=== PATIENT | female | born 1995 | race Caucasian/White ===

== ENCOUNTER 2016-07-28 17:20 | Emergency (ER) | payer OTHER ==
[~2016-07-28] VITALS: Ht 165.1 cm; Wt 57.3 kg
[~2016-07-28 17:20] MED LIST: ABL10 PO; AZITTAB PO; CITA40TA4 PO; LEVOTAB PO; WLLSR100 PO
[2016-07-28 17:22] VITALS: TEMP 36.6; Ht 165.1 cm; Wt 57.3 kg
--- NOTE | 2016-07-28 18:24 | EMERGENCY ROOM VISIT NOTE ---
ED Visit Note First contact with patient: 17:24 CHIEF COMPLAINT: test request HISTORY OF PRESENT ILLNESS: This 21-year-old female patient presents to the emergency department accompanied by her boyfriend requesting a test. The patient states that she and her boyfriend have been trying to get for a few months. She states that her period is approximately one week late. Her last menstrual period was 06/24/16. She denies any of the . Denies any vaginal discharge, vaginal bleeding, nausea or vomiting. REVIEW OF SYSTEMS: A review of systems was performed with positives and pertinent negatives listed in the history of present illness. All other systems were reviewed and are negative. ALLERGIES: No known drug allergies MEDICATIONS: No chronic medications PMH: No significant past medical history. SOCIAL HISTORY: The patient lives locally with family. PHYSICAL EXAM: VITALS: Vitals are noted on the nurse's note and reviewed by myself. Vital signs stable. GENERAL: This is a 21-year-old female, in no acute distress, nondiaphoretic, well-developed well-nourished. HEART: Regular rate and rhythm, no murmurs gallops or rubs. LUNGS: Clear to auscultation throughout all lung petersen. ABDOMEN: Soft, nontender to palpation. EMERGENCY DEPARTMENT COURSE: The patient was evaluated as above. Urine test was performed and was negative. The patient was informed of the findings. She was instructed to repeat test in 1-2 weeks if she still does not have her menstrual period. She verbalized understanding of my assessment and treatment plan was discharged home in good condition. DIAGNOSIS: test request Problem List Medical Problems: (1) Anxiety Status: Chronic (2) Bronchitis Status: Resolved (3) Depression Status: Chronic Current/Historical Medications No Active Prescriptions or Reported Meds Allergies Coded Allergies: No Known Allergies (Unverified , 07/28/16) Vital Signs Date Time Temp Pulse Resp B/P Pulse Ox O2 Delivery O2 Flow Rate FiO2 07/28/16 17:22 36.6 92 18 112/69 97 Room Air Laboratory Results Test 07/28/16 17:32 Departure Information Impression Primary Impression: Possible Dispostion Home / Self-Care Condition GOOD Prescriptions No Active Prescriptions or Reported Meds Referrals Chitra Eagle M.D. (PCP) Patient Instructions My [facility] Additional Instructions Repeat a test in 1-2 weeks if you still did not have her menstrual period. Follow-up with [facility] as needed.
[2016-07-28 18:34] VITALS: BP 105/62; PULSE 75; O2SAT 98
== END 2016-07-28 18:36 | disposition home or self-care (01) ==
LOC: C.EDB 17:22 → C.EDD 18:36
DX: Z32.02 Encounter for pregnancy test, result negative (principal); F41.9 Anxiety disorder, unspecified; F32.9 Major depressive disorder, single episode, unspecified

== ENCOUNTER 2020-01-05 14:48 | Inpatient (IN) ==
[2020-01-05] MEDS ORDERED: LACTATED RINGER'S 1,000 ML IV PRN (15:13)
[2020-01-05] MEDS ORDERED: OXYTOCIN 30 UNITS/500 ML BAG IV PRN ×2 (15:13→20:51)
--- NOTE | 2020-01-05 15:16 | Delivery Summary ---
Vaginal Delivery Summary Date of Service January 05, 2020 Vaginal Delivery Summary Patient presented in active labor this was her second baby COVID negative group B strep positive she presented at 7 cm and then rapidly progressed to fully dilated within a few minutes she did not have time to receive IV antibiotics and delivered a baby over an intact perineum after pushing only through 1 contraction live vigorous infant cord clamped and cut no nuchal cord no excessive force used cord gases sent cord blood use placenta removed with gentle traction IV Pitocin was then started as an IV was started sponge and instrument counts correct estimated blood loss 150 mL [facility] Vaginal Delivery Charge Vaginal Delivery Codes: 83693 global code for the antepartum, delivery, and post-
[2020-01-05] MEDS ORDERED: OXYTOCIN 30 UNITS/500ML NSS ONE (15:18)
[2020-01-05] MEDS ORDERED: IBUPROFEN 600 MG TAB PO ONE (15:28)
[2020-01-05 15:48] LABS: Hematocrit (blood only) 43.5 % (37-47); Hemoglobin 14.9 g/dL (12.0-16.0); Mean Corpuscular Hemoglobin 32.2 pg (25-34); Mean Platelet Volume 11.5 fL (7.4-10.4); Platelet Count 245 K/uL (130-400); RDW Standard Deviation 44.7 fL (36.4-46.3); Red Blood Count 4.63 M/uL (4.2-5.4); White Blood Count 17.12 K/uL (4.8-10.8)
[2020-01-05 16:00] LABS: Mean Corpuscular Hgb Conc 34.3 g/dL (32-36)
[2020-01-05] MEDS ORDERED: ACETAMINOPHEN 325 MG TAB ONE (16:10)
[2020-01-05 16:22] LABS: Base Excess Cord Venous Blood -1.9 mEq/L (-7.7-1.9); Cord Venous Blood HCO3 21 mmol/L (18.4-26.8); Cord Venous Blood PCO2 30 mmHg (30.4-57.2); Cord Venous Blood PO2 22 mmHg (14.1-43.3); Cord Venous Blood pH 7.46 (7.20-7.44)
[2020-01-05 16:32] LABS: CO2 Cord Arterial Blood 38 mmHg (39.1-73.5); HCO3 Cord Arterial Blood 22 mmol/L (19.7-28.5); O2 Saturation Cord Venous Bld < 60.0 % (<68); PO2 Cord Arterial Blood 19 mmHg (4.1-31.7); pH Cord Arterial Blood 7.39 (7.1-7.38)
[2020-01-05 16:33] LABS: Oxygen Sat Cord Arterial Blood < 60.0 % (<60)
[2020-01-05] MEDS ORDERED: OXYCODONE/ACETAMINOPHEN 5mg/325mg TAB PO PRN (20:51)
[2020-01-05] MEDS ORDERED: bisacodyL 10 MG SUPP PR PRN (20:51)
[2020-01-05] MEDS ORDERED: SUPERCREAM 0.870% 15 GM JAR EXT PRN (20:51)
[2020-01-05] MEDS ORDERED: BENZOCAINE 20% AER SPR 82.5 GM CAN EXT PRN (20:51)
[2020-01-05] MEDS ORDERED: DIPHTHERIA/TETANUS/PERTUSSIS 0.5 ML SYR/VIAL IM ONE (20:51)
[2020-01-05] MEDS ORDERED: HYDROCORTISONE ACETATE 25 MG SUPP PR PRN (20:51)
[2020-01-05] MEDS ORDERED: ACETAMINOPHEN 325 MG TAB PO PRN (20:51)
[2020-01-05] MEDS: DOCUSATE SODIUM 100 MG CAP PO SCH (21:14)
[2020-01-05] MEDS: IBUPROFEN 600 MG TAB PO PRN (21:14)
[2020-01-06] MEDS: IBUPROFEN 600 MG TAB PO PRN ×2 (03:47→08:18)
[2020-01-06 05:53] LABS: Hematocrit (blood only) 36.7 % (37-47); Hemoglobin 12.7 g/dL (12.0-16.0); Mean Corpuscular Hemoglobin 32.4 pg (25-34); Mean Corpuscular Hgb Conc 34.6 g/dL (32-36); Mean Corpuscular Volume 93.6 fL (80-100); Mean Platelet Volume 11.3 fL (7.4-10.4); Platelet Count 213 K/uL (130-400); RDW Coefficient of Variation 13.1 % (11.5-14.5); RDW Standard Deviation 44.2 fL (36.4-46.3); Red Blood Count 3.92 M/uL (4.2-5.4); White Blood Count 17.37 K/uL (4.8-10.8)
--- NOTE | 2020-01-06 07:10 | Obstetrical Progress Note ---
Date of Service <Carlo Dyson MD - Last Filed: 01/06/20 08:08> January 06, 2020 Assessment & Plan <Carlo Dyson MD - Last Filed: 01/06/20 08:08> (1) Spontaneous vaginal delivery: - PNL: Rh pos, RI, GBS pos, COVID neg - Feels well today. Eating well, voiding well, ambulating well. - Pain well controlled with ibuprofen 600mg Q4H PRN - Routine care - OOB, ambulation, diet progression as tolerated - After discharge will have 6 week follow-up with Dr. Fuentes Subjective <Carlo Dyson MD - Last Filed: 01/06/20 08:08> Ambulation: ambulating normally Voiding: no voiding problems Passing Gas:: Yes Diet Tolerance:: regular diet Lochia:: Small Constitutional: no fever and no chills Respiratory: no cough and no dyspnea Cardiovascular: no chest pain, no palpitations and no edema Gastrointestinal: no nausea and no vomiting Genitourinary (female): no dysuria Physical Exam <Carlo Dyson MD - Last Filed: 01/06/20 08:08> Constitutional no acute distress Respiratory normal respiratory effort, lungs clear to auscultation Cardiovascular RRR, no murmur, no edema Gastrointestinal (Abdomen) Inspection/Auscultation: normal bowel sounds Percussion/Palpation: abdomen soft Musculoskeletal no calf tenderness Genitourinary uterine fundus firm, palpable 3cm below umbilicus Results & Data ([facility]) <Carlo Dyson MD - Last Filed: 01/06/20 08:08> Vital Signs (Past 12 Hours) Vital Signs Temp Pulse Resp BP Pulse Ox 01/06/20 03:50 36.6 C 66 18 117/80 97 01/05/20 23:45 36.4 C L 60 18 116/77 97 01/05/20 19:40 36.8 C 93 H 18 122/76 97 <Gui Fuentes MD, FACOG - Last Filed: 01/06/20 08:52> Co-Signing Physician Notes Resident Physician Supervision Note: I was present with [Karis] during the history and exam. I discussed the case with the resident and agree with the findings and plan as documented in the note. Any exceptions or clarifications are listed here: [None] Documented By: Gui Fuentes MD, FACOG Resident Activity Tracking <Carlo Dyson MD - Last Filed: 01/06/20 08:08> Resident Involvement: Resident Care Provided Care Provided: OB Delivery
--- NOTE | 2020-01-06 07:30 | Medical Student Progress Note ---
Date of Service January 06, 2020 Assessment & Plan (1) Spontaneous vaginal delivery: - Feels well today. Eating well, voiding well, ambulating well. - Pain well controlled with ibuprofen 600mg Q4H PRN - Routine care -- OOB, ambulation, diet progression as tolerated - After discharge will have 6 week follow-up with Dr. Fuentes Admission and Anticipated Discharge Date Admission Date: January 05, 2020 Subjective Subjective: Ms. Eastman is a 24 y/o female who is now PPD #1 following (spontaneous vaginal delivery +/- IOP) at 39 weeks. Reports feeling well overall this morning. No abdominal cramping & 1/10 pain with motrin management. Voiding gas, but no BM yet. No burning with urination. Patient ate last night shortly after delivery . She reports no nausea or vomiting. Tolerating meals overnight and able to ambulate well. Reports minimal discharge this morning. She has been bottle feeding and this is going well. She and her baby slept well through the night with no issues to report. Review of Systems Denies fever, chills, sweats Denies shortness of breath, difficulty breathing, chest pain, palpitations, chest pressure. Denies breast pain. Denies dysuria. Denies headache or changes in vision. Pt refused physical exam as the resident had just performed one. Physical Exam Constitutional: no acute distress and not ill appearing Results & Data ([facility]) Vital Signs (Past 12 Hours) Vital Signs Temp Pulse Resp BP Pulse Ox 01/06/20 03:50 36.6 C 66 18 117/80 97 01/05/20 23:45 36.4 C L 60 18 116/77 97 01/05/20 19:40 36.8 C 93 H 18 122/76 97 ROS Constitutional Reports as per HPI and Reports fatigue; Denies fever(s), Denies chills, Denies poor appetite and Denies headache(s) Eyes Eyes: Reports as per HPI; Denies change in vision Ear, Nose, Mouth, Throat ENT, Mouth: Reports as per HPI; Denies nasal congestion, Denies post nasal drip and Denies sore throat Cardiovascular Cardio: Reports as per HPI; Denies chest pain Respiratory Resp: Denies chest congestion, Denies cough, Denies post nasal drip and Denies dyspnea Gastrointestinal GI: Reports as per HPI, Denies abdominal pain, Denies nausea, Denies poor appetite and Denies vomiting Genitourinary Reports system reviewed and no additional complaints, except as documented, Denies dysuria and Reports vaginal discharge (minimal) Musculoskeletal Musk: Reports as per HPI and Reports system reviewed and no additional complaints, except as documented Skin/Breast Reports system reviewed and no additional complaints, except as documented Neurologic Reports system reviewed and no additional complaints, except as documented and Denies headache(s) Psychiatric Reports system reviewed and no additional complaints, except as documented Endocrine Reports fatigue Hematologic / Lymphatic Reports system reviewed and no additional complaints, except as documented
[2020-01-06] MEDS: PRENATAL VITAMIN 1 TAB PO SCH (08:18)
[2020-01-06] MEDS: DOCUSATE SODIUM 100 MG CAP PO SCH ×2 (08:18→20:39)
--- NOTE | 2020-01-06 08:21 | Medical Student Progress Note ---
Date of Service January 06, 2020 Assessment & Plan Admission and Anticipated Discharge Date Admission Date: January 05, 2020 Results & Data ([facility]) Vital Signs (Past 12 Hours) Vital Signs Temp Pulse Resp BP Pulse Ox 01/06/20 07:20 36.7 C 76 16 107/72 01/06/20 03:50 36.6 C 66 18 117/80 97 01/05/20 23:45 36.4 C L 60 18 116/77 97
[2020-01-06] MEDS ORDERED: NON-FORMULARY MEDICATION (Prenat.Vits,Cal,Min-Iron-Folic 1 TAB) PO SCH (09:00)
[2020-01-06] MEDS ORDERED: bisacodyL 5 MG TABEC PO SCH (20:00)
--- NOTE | 2020-01-07 07:01 | Medical Student Progress Note ---
Date of Service January 07, 2020 Assessment & Plan (1) Spontaneous vaginal delivery: - Feels well today. Eating well, voiding well, ambulating well. - Pain well controlled with ibuprofen 600mg Q4H PRN - Routine care -- OOB, ambulation, diet progression as tolerated - After discharge will have 6 week follow-up with Dr. Fuentes Admission and Anticipated Discharge Date Admission Date: January 05, 2020 Petrona Ambrocio is a 24 y/o female who is now PPD 2 following at 39 weeks. She reports feeling well this morning and does not voice any concerns. She is not having any pain (0/10) and is not taking any analgesic medication. She is ambulating well. She is able to pass gas and has had a BM. She is eating regular meals provided to her by the hospital without any nausea or vomiting. She is having minor bloody discharge. She is bottle feeding regularly. Review of Systems: Denies fever, chills, sweats Denies shortness of breath, difficulty breathing, chest pain, palpitations, chest pressure. Denies breast pain. Denies dysuria. Denies headache. Physical Exam Respiratory: normal respiratory effort, lungs clear to auscultation Cardiovascular: RRR, no murmur, no edema Gastrointestinal (Abdomen): normal bowel sounds, soft, nontender, no hepatosplenomegaly Inspection/Auscultation: abdomen normal to inspection Skin: no rashes, warm and dry Psychiatric: A+Ox3, euthymic affect Results & Data ([facility]) Vital Signs (Past 12 Hours) Vital Signs Temp Pulse Resp BP Pulse Ox 01/07/20 01:14 36.7 C 81 18 109/72 97 01/06/20 19:30 36.6 C 89 18 121/78 95
[2020-01-07 07:10] LABS: Hematocrit (blood only) 39.3 % (37-47); Hemoglobin 14.2 g/dL (12.0-16.0)
--- NOTE | 2020-01-07 07:38 | Obstetrical Progress Note ---
Date of Service <Carlo Dyson MD - Last Filed: 01/07/20 07:38> January 07, 2020 Assessment & Plan <Carlo Dyson MD - Last Filed: 01/07/20 07:38> (1) Spontaneous vaginal delivery: - PNL: Rh pos, RI, GBS pos, COVID neg - Feels well today. Eating well, voiding well, ambulating well. - Pain well controlled with ibuprofen 600mg Q4H PRN - Routine care - OOB, ambulation, diet progression as tolerated - Discharge today - After discharge will have 6 week follow-up with Dr. Fuentes Subjective <Carlo Dyson MD - Last Filed: 01/07/20 07:38> Ambulation: ambulating normally Voiding: no voiding problems Passing Gas:: Yes Diet Tolerance:: regular diet Lochia:: Small Constitutional: no fever and no chills Respiratory: no cough and no dyspnea Cardiovascular: no chest pain, no palpitations and no edema Gastrointestinal: no nausea and no vomiting Genitourinary (female): no dysuria Physical Exam <Carlo Dyson MD - Last Filed: 01/07/20 07:38> Constitutional no acute distress Respiratory normal respiratory effort, lungs clear to auscultation Cardiovascular RRR, no murmur, no edema Gastrointestinal (Abdomen) Inspection/Auscultation: normal bowel sounds Percussion/Palpation: abdomen soft Results & Data ([facility]) <Carlo Dyson MD - Last Filed: 01/07/20 07:38> Vital Signs (Past 12 Hours) Vital Signs Temp Pulse Resp BP Pulse Ox 01/07/20 01:14 36.7 C 81 18 109/72 97 <Jennifer Hazel DO - Last Filed: 01/07/20 07:56> Co-Signing Physician Notes Resident Physician Supervision Note: I was present with Dr. Villegas during the history and exam. I discussed the case with the resident and agree with the findings and plan as documented in the note. Any exceptions or clarifications are listed here: PPD#1 doing well, desires discharge. Documented By: Jennifer Hazel DO Resident Activity Tracking <Carlo Dyson MD - Last Filed: 01/07/20 07:38> Resident Involvement: Resident Care Provided Care Provided: OB Delivery
[2020-01-07] MEDS: DOCUSATE SODIUM 100 MG CAP PO SCH (08:47)
[2020-01-07] MEDS: PRENATAL VITAMIN 1 TAB PO SCH (08:47)
== END 2020-01-07 11:03 | disposition home or self-care (01) | DRG 807 ==
LOC: OPB 14:48 → 4S1 14:50 → 4S2 19:08